=== PATIENT | female | born 1985 | race Caucasian/White ===

== ENCOUNTER 2016-05-17 12:58 | Inpatient (IN) | payer MEDICAID ==
[~2016-05-17] VITALS: Ht 162.6 cm; Wt 91.4 kg
[2016-05-17 13:21] VITALS: Ht 162.6 cm; Wt 91.4 kg
[2016-05-17 13:22] VITALS: BP 124/74; PULSE 87; RESP 18
[2016-05-17] MEDS ORDERED: PRENAT PO (13:24)
[2016-05-17] MEDS ORDERED: FERR325C PO (13:25)
[2016-05-17] MEDS ORDERED: FOL8 PO (13:25)
[2016-05-17] MEDS ORDERED: LACTATED RINGER'S 1,000 ML IV SCH (13:52)
--- NOTE | 2016-05-17 14:45 | RADRPT ---
PROCEDURE: US OB. CLINICAL INDICATION: Size and dates TECHNIQUE: Multiple sonographic images of the pelvis and gravid uterus were obtained. The images were reviewed on a PACS workstation. COMPARISON: No prior studies are available for comparison. FINDINGS: There is a single viable intrauterine gestation. Cardiac activity is present with 132 beats per min tanja. There is a variable presentation. The placenta is anterior fundal. There is no evidence for an abruption or placenta previa. Measurements were made in order to determine age. The results are as follows: BPD =8.6 cm HC =31.6 cm AC =30.3 cm FL =6.1 cm Estimated gestational age of approximately 34 weeks and 0 days based on ultrasound measurements. Clinical age: 35 weeks and 5 days. The estimated date of delivery is 06/28/16, based on ultrasound measurements. The EFW = 2248 g, 7.5%, based on LMP age. RPTAT: AA IMPRESSION: Single viable intrauterine gestation of approximately 34 weeks and 0 days based on ultrasound measu rements. Smaller than clinical age by 1.5 weeks. .Osmel Mccall MD MD Date Time Electronically viewed and signed by .Osmel Mccall MD, MD on 05/17/2016 14:44 .S/
--- NOTE | 2016-05-17 15:18 | RADRPT ---
PROCEDURE: US OB biophysical profile. CLINICAL INDICATION: decreased movements TECHNIQUE: Multiple sonographic images of the pelvis were obtained. The images were reviewed on a PACS workstation. COMPARISON: No prior studies are available for comparison. FINDINGS: There is a single viable intrauterine gestation. Cardiac activity is present with 130 beats per min tanja. There is a breech presentation. The placenta is anterior fundal. There is no evidence of placental abruption. There is a normal amount of amniotic fluid with an DARIAN = 9.5 cm. Biophysical profile: movement 2/2 tone 2/2. breathing 2/2 DARIAN 2/2 Total 11/06 RPTAT: AA . IMPRESSION: Normal biophysical profile. . .Osmel Mccall MD, MD Date Time Electronically viewed and signed by .Osmel Mccall MD, MD on 05/17/2016 15:17 .S/
[2016-05-17] MEDS: LACTATED RINGER'S 1,000 ML IV SCH ×2 (15:52→23:42)
[2016-05-17 16:09] LABS: ALBUMIN 3.4 g/dl (3.3-4.9)
[2016-05-17 16:10] LABS: POTASSIUM 3.9 mmol/L (3.5-5.1)
[2016-05-17 16:12] LABS: ALBUMIN/GLOBULIN RATIO 1.06; BILIRUBIN,INDIRECT 0.1 mg/dl (0-1.1); BILIRUBIN,TOTAL 0.1 mg/dl (0.2-1.3); CREATININE 0.43 mg/dl (0.44-1.00); TOTAL PROTEIN 6.6 g/dl (6.1-8.1)
[2016-05-17 16:13] LABS: CALCIUM 8.8 mg/dl (8.4-10.2)
[2016-05-17] MEDS: GENTAMICIN 120 MG/NS (PMX) 100 ML IVPB SCH ×2 (16:55→22:09)
--- NOTE | 2016-05-17 20:31 | HP ---
DATE OF ADMISSION: 05/17/2016 HISTORY OF PRESENT ILLNESS: Ms. Tete Stephens is a 30-year-old 1, para 0, EDC 06/17/2016 , intrauterine at 35 weeks and 4 days' gestational age, who was sent from [facility] secondary to a urinary tract infection/Pseudomonas putida which was sensitive to genta micin. She was admitted for IV gentamicin q.8 hours for 3 days per pharmacy regimen. The patient d enies any contractions, vaginal bleeding or discharge. Her care took place at [facility] at approximately 34 weeks' gestational age. MEDICAL HISTORY: Anemia. MEDICATIONS: 1. vitamins. 2. Iron. PAST SURGICAL HISTORY: None. OBSTETRIC HISTORY: Primigravid. GYNECOLOGIC HISTORY: Twelve, regular, 3 to 4 days. Denies any sexually transmitted disease. Sexua lly active with 1 partner. SOCIAL HISTORY: Denies any smoking, drugs or alcohol. FAMILY HISTORY: None. PHYSICAL EXAMINATION: HEENT: Within normal. LUNGS: CTA bilateral. CARDIOVASCULAR: S1, S2. Regular rhythm. ABDOMEN: Gravid, nontender. EXTREMITIES: Negative edema. No calf tenderness. PELVIC: Vaginal exam deferred. ASSESSMENT: Urinary tract infection, pseudomonas sensitive to gentamicin. PLAN: Admit for IV gentamicin per pharmacy regimen. Dictated By: ANG BARBOUR/AAMIR Conf#: [id number] DID#: [id number]
[2016-05-18] MEDS: GENTAMICIN 120 MG/NS (PMX) 100 ML IVPB SCH ×3 (06:22→21:49)
--- NOTE | 2016-05-18 08:04 | QN ---
Documentation Comment patient seen and evaluated no complaints vs stable ab gravid nt no cva tenderness extremity no edema no calf tenderness a/ iup at 35 wks ga, uti currently on iv antibiotics p/ continue present management ANG STOVER MD May 18, 2016 08:04
[2016-05-18] MEDS: MULTIVIT/MIN/FOLATE/IRON/PREN TAB PO SCH (09:11)
[2016-05-18] MEDS: FERROUS SULFATE (EC) 325 MG TAB PO SCH (09:11)
[2016-05-18] MEDS: LACTATED RINGER'S 1,000 ML IV SCH ×3 (09:15→22:00)
[2016-05-19] MEDS: GENTAMICIN 120 MG/NS (PMX) 100 ML IVPB SCH ×3 (05:47→22:02)
[2016-05-19] MEDS: LACTATED RINGER'S 1,000 ML IV SCH ×3 (05:48→22:01)
[2016-05-19] MEDS: MULTIVIT/MIN/FOLATE/IRON/PREN TAB PO SCH (08:34)
[2016-05-19] MEDS: FERROUS SULFATE (EC) 325 MG TAB PO SCH (08:34)
--- NOTE | 2016-05-19 17:29 | QN ---
Documentation Comment Laborist for Dr Ramirez Pt is a 30 y.o. G1 with pyelonephritis with Pseudomonas on day 3 of Gentamicin. Pt feels well and is w/o complaints. No flank pain. Afebrile, VSS. No CVAT. P: Continue care. DIRK MARTINEZ MD May 19, 2016 17:29
[2016-05-20] MEDS: GENTAMICIN 120 MG/NS (PMX) 100 ML IVPB SCH (05:35)
[2016-05-20] MEDS: LACTATED RINGER'S 1,000 ML IV SCH (05:36)
[2016-05-20] MEDS: FERROUS SULFATE (EC) 325 MG TAB PO SCH (08:55)
[2016-05-20] MEDS: MULTIVIT/MIN/FOLATE/IRON/PREN TAB PO SCH (08:55)
--- NOTE | 2016-05-20 11:05 | PD.PPDC ---
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
--- NOTE | 2016-05-20 15:12 | DS ---
DATE OF ADMISSION: 05/17/2016 DATE OF DISCHARGE: 05/20/2016 PRIMARY DIAGNOSIS: A 30-year-old 1, para 0, intrauterine at 35 weeks gestational age, urinary tract infection with Pseudomonas putida, undelivered. PROCEDURE: None. CONDITION ON DISCHARGE: Stable. ACTIVITY: As tolerated. DIET: Regular. MEDICATIONS ON DISCHARGE: None. DISCHARGE SUMMARY: Ms. Tete Stephens is a 30-year-old 1, para 0, who was sent from [facility] for IV antibiotics secondary to Pseudomonas putida. She had 3 days' cours e of IV gentamicin per pharmacy regimen, and she currently denies any contractions, vaginal bleeding , CVA tenderness. She will follow up in her normal office visit this for care. Dictated By: ANG BARBOUR/AAMIR Conf#: [id number] DID#: [id number]
== END 2016-05-20 13:15 | disposition home or self-care (01) | DRG 781 ==
LOC: OBT 12:58 → L-D 12:58 → OBT 13:55 → OBG 13:56
PROVIDERS: ADMIT Obstetrics & Gynecology; ATTEND Obstetrics & Gynecology
DX: O23.43 Unspecified infection of urinary tract in pregnancy, third trimester (principal); B96.5 Pseudomonas (aeruginosa) (mallei) (pseudomallei) as the cause of diseases classified elsewhere; Z3A.35 35 weeks gestation of pregnancy
CPT/HCPCS: 76815; 76818; 80053; G0463; J1580; J7120

== ENCOUNTER 2016-05-31 12:24 | Outpatient (CLI) | payer SELFPAY ==
[~2016-05-31] VITALS: Ht 162.6 cm; Wt 93.0 kg
[~2016-05-31 12:24] MED LIST: FERR325C PO; FOL8 PO; PRENAT PO
[2016-05-31 12:43] VITALS: Ht 162.6 cm; Wt 93.0 kg
[2016-05-31 12:44] VITALS: BP 111/62; PULSE 88; RESP 18
[2016-05-31] MEDS ORDERED: FERR325C PO (12:47)
[2016-05-31 13:32] LABS: ADD SCAN DIFF NO
[2016-05-31 13:35] LABS: BASOPHILS % 0.3 % (0.0-2.0); EOSINOPHILS % 0.3 % (0.0-7.0); HEMATOCRIT 31.9 % (37.0-47.0); HEMOGLOBIN 9.9 g/dl (12.0-16.0); LYMPHOCYTES # 1.5 10^3/ul (0.8-2.9); LYMPHOCYTES % 16.3 % (15.0-51.0); MEAN CORPUSCULAR HEMOGLOBIN 26.4 pg (29.0-33.0); MEAN CORPUSCULAR VOLUME 85.1 fl (82.0-101.0); MEAN PLATELET VOLUME 9.5 fl (7.4-10.4); MONOCYTE # 0.7 10^3/ul (0.3-0.9); MONOCYTES % 7.2 % (0.0-11.0); NEUTROPHIL # 6.9 10^3/ul (1.6-7.5); NEUTROPHILS % 75.4 % (39.0-77.0); PLATELET COUNT 401 10^3/UL (140-415); RED BLOOD COUNT 3.75 10^6/ul (4.20-5.40); WHITE BLOOD COUNT 9.2 10^3/ul (4.8-10.8)
[2016-05-31 13:35] LABS: ADD UMIC YES; URINE BILIRUBIN (Dip) NEGATIVE (NEGATIVE); URINE BLOOD (Dip) NEGATIVE (NEGATIVE); URINE COLOR LT. YELLOW (YELLOW); URINE GLUCOSE (Dip) NEGATIVE (NEGATIVE); URINE KETONES (Dip) NEGATIVE (NEGATIVE); URINE LEUKOCYTE ESTERASE (Dip) 1+ (NEGATIVE); URINE NITRITE (Dip) NEGATIVE (NEGATIVE); URINE TOTAL PROTEIN (Dip) NEGATIVE (NEGATIVE); URINE UROBILINOGEN (Dip) 0.2 E.U./dL (0.1-1.0)
[2016-05-31 13:44] LABS: BACTERIA,URINE MODERATE; URINE RBCS NONE SEEN /HPF (0)
[2016-05-31 13:58] LABS: ALBUMIN 3.5 g/dl (3.3-4.9)
[2016-05-31 13:59] LABS: POTASSIUM 4.4 mmol/L (3.5-5.1)
[2016-05-31 14:01] LABS: CREATININE 0.5 mg/dl (0.44-1.00)
[2016-05-31 14:02] LABS: ALBUMIN/GLOBULIN RATIO 0.87; TOTAL PROTEIN 7.5 g/dl (6.1-8.1); URIC ACID 3.1 mg/dl (3.1-7.9)
[2016-05-31 14:03] LABS: CALCIUM 9.1 mg/dl (8.4-10.2)
--- NOTE | 2016-05-31 14:36 | RADRPT ---
PROCEDURE: US OB biophysical profile. CLINICAL INDICATION: decreased movements, HBPS TECHNIQUE: Multiple sonographic images of the pelvis were obtained. The images were reviewed on a PACS workstation. COMPARISON: 05/17/2016 FINDINGS: There is a single viable intrauterine gestation. Cardiac activity is present with 137 beats per min tanja. There is a vertex presentation. The placenta is bilobed. There is no evidence of placental abruption. There is a normal amount of amniotic fluid with an DARIAN = 16 cm. Biophysical profile: movement 2/2 tone 2/2. breathing 2/2 DARIAN 2/2 Total 11/06 RPTAT: AA . IMPRESSION: Normal biophysical profile. . .Osmel Mccall MD, MD Date Time Electronically viewed and signed by .Osmel Mccall MD, MD on 05/31/2016 14:36 .S/
--- NOTE | 2016-05-31 14:41 | RADRPT ---
PROCEDURE: US OB. CLINICAL INDICATION: Size and dates , late care TECHNIQUE: Multiple sonographic images of the pelvis and gravid uterus were obtained. The images were reviewed on a PACS workstation. COMPARISON: 05/17/2016 FINDINGS: There is a single viable intrauterine gestation. Cardiac activity is present with 137 beats per min elim ira. There is a vertex presentation. The placenta is bilobed anterior-posterior. There is no evidence for an abruption or placenta previa . There is a normal amount of amniotic fluid with an DARIAN = 16 cm. Measurements were made in order to determine age. The results are as follows: BPD =9.0 cm HC =33.4 cm AC =33.7 cm FL =7.4 cm Estimated gestational age of approximately 37 weeks and 4 days based on ultrasound measurements. Clinical age: 37 weeks and 4 days. The estimated date of delivery is 06/17/16, based on ultrasound measurements. The EFW = 3250 g, 60.1%, based on LMP age. RPTAT: AA IMPRESSION: Single viable intrauterine gestation of approximately 37 weeks and 4 days based on ultrasound measu rements. .Osmel Mccall MD, Date Time Electronically viewed and signed by .Osmel Mccall MD, on 05/31/2016 14:41 .S/
--- NOTE | 2016-05-31 16:12 | CONS ---
Date/Time of Note Date/Time of Note DATE: 05/31/16 TIME: 16:03 Consultation Date/Type/Reason Admit Date/Time May 31, 2016 OB triage consult This patient is a 30 years old primigravida with estimated date of confinement of June 17, 2016 this makes her about 37 weeks now She had a late entry into the obstetrical care and she was sent to the OB triage area for elevated of blood pressure to rule out PIH or any other abnormal condition She is a well-developed well-nourished lady closed with her her ear nose throat appear to be normal Neck is normal Abdomen measures about 35 cm baby appears to be vertex at this time she has very scattered contractions that is infrequent contraction heart tone appears to be normal no deceleration she has fairly good variability occasional axillary Her vital signs are normal. Her blood pressure 111/62 pulse rate 88 and temperature 97.9 on the lab work we have done. Her electrolytes are within normal limits, her urine urinalysis shows a 1+ leukocyte esterase with 5-10 WBCs. The rest of the urinalysis was reported normal. Her hemoglobin is 9.9 hematocrit 31.9 RBC 3.7. Her white count platelet count and differential were all within normal. Ultrasound study there was a single viable intrauterine gestation with cardiac activity of 137 bpm her DARIAN was 16 cm and estimated gestational age of approximately 37 weeks and 4 days.By this ultrasound the estimated weight was 2-3250 g which is 60.1% of based on LMP . Due date these positive findings patient will be sent home to continue her care,. She was mentioned about her anemia she says she is taking iron 3 times a day and we recommended to continue this till delivery and after that. . She will be seeing her clinic on her next appointment which is tomorrow Laboratory Tests Test 05/31/16 12:26 05/31/16 12:57 Urine Bacteria MODERATE Urine Bilirubin NEGATIVE Urine Clarity CLEAR Urine Color LT. YELLOW Urine Epithelial Cells MODERATE Urine Glucose NEGATIVE% Urine Hemoglobin NEGATIVE Urine Ketones NEGATIVE Urine Leukocyte Esterase 1+ Urine Microscopic RBC NONE SEEN/HPF Urine Microscopic WBC 5-10/HPF Urine Nitrite NEGATIVE Urine Specific [place] 1.015 Urine Total Protein NEGATIVE Urine Urobilinogen 0.2 E.U./dL Urine pH 7.0 Alanine Aminotransferase (ALT/SGPT) 29IU/L Albumin 3.5g/dl Albumin/Globulin Ratio 0.87 Alkaline Phosphatase 138IU/L Anion Gap 17 Aspartate Amino Transf (AST/SGOT) 17IU/L Basophils # 0.010^3/ul Basophils % 0.3% Blood Urea Nitrogen 6mg/dl Calcium Level 9.1mg/dl Carbon Dioxide Level 21mmol/L Chloride Level 105mmol/L Creatinine 0.50mg/dl Direct Bilirubin 0.00mg/dl Eosinophils # 0.010^3/ul Eosinophils % 0.3% Globulin 4.00g/dl Glucose Level 79mg/dl Hematocrit 31.9% Hemoglobin 9.9g/dl Indirect Bilirubin 0.0mg/dl Lymphocytes # 1.510^3/ul Lymphocytes % 16.3% Mean Corpuscular Hemoglobin 26.4pg Mean Corpuscular Hemoglobin Concent 31.0g/dl Mean Corpuscular Volume 85.1fl Mean Platelet Volume 9.5fl Monocytes # 0.710^3/ul Monocytes % 7.2% Neutrophils # 6.910^3/ul Neutrophils % 75.4% Nucleated Red Blood Cells # 0.010^3/ul Nucleated Red Blood Cells % 0.0/100WBC Platelet Count 60675^3/UL Potassium Level 4.4mmol/L Red Blood Count 3.7510^6/ul Red Cell Distribution Width 16.0% Sodium Level 139mmol/L Total Bilirubin 0.0mg/dl Total Protein 7.5g/dl Uric Acid 3.1mg/dl White Blood Count 9.210^3/ul on examination Initial Consult Date Type of Consultation: OB triage Reason for Consultation Rule out PIH 24 HR Interval Summary Constitutional: No chills, No diaphoresis, No disoriented, No febrile, No improved, No no complaints, No other, No poor po, No requiring IVF, No requiring O2 Detailed Summary Eyes: No discharge, No no complaints, No other, No pain, No redness, No visual change ENT: No bleeding, No congestion, No discharge, No dysphagia, No no complaints, No other, No pain, No sore throat Respiratory: No cough, No no complaints, No other, No pain, No pleuritic pain, No shortness of breath, No sputum, No wheezing Cardiovascular: No chest pain, No edema, No lightheadedness, No no complaints, No orthopenea, No other, No palpitations, No paroxysmal nocturnal dyspnea Gastrointestinal: No blood, No constipation, No decreased appetite, No diarrhea , No flatus, No nausea, No no complaints, No other, No pain, No passing stool, No vomiting Genitourinary: other (No complaint of dysuria or frequency), No bleeding, No discharge, No dysuria, No flank pain, No hematuria, No no complaints Musculoskeletal: No back pain, No bone/joint pain, No neck pain, No no complaints, No other, No restricted range of motion, No swelling Skin: No bruising, No erythema, No laceration, No no complaints, No other, No pruritis, No rash, No skin lesions Neurologic: No confusion, No dizziness, No focal-weakness, No headache, No no complaints, No other, No seizure, No syncope Endocrine: No dry skin, No no complaints, No other, No polydypsia, No polyuria , No temp intolerance Exam/Review of Systems Vital Signs Vitals Vital Signs Date Time Temp Pulse Resp B/P Pulse Ox O2 Delivery O2 Flow Rate FiO2 05/31/16 12:44 97.9 88 18 111/62 Room Air Results Result Diagram: 05/31/16 1257 05/31/16 1257 Results 24 hrs Laboratory Tests Test 05/31/16 12:26 05/31/16 12:57 Urine Bacteria MODERATE Urine Bilirubin NEGATIVE Urine Clarity CLEAR Urine Color LT. YELLOW Urine Epithelial Cells MODERATE Urine Glucose NEGATIVE Urine Hemoglobin NEGATIVE Urine Ketones NEGATIVE Urine Leukocyte Esterase 1+ H Urine Microscopic RBC NONE SEEN Urine Microscopic WBC 5-10 Urine Nitrite NEGATIVE Urine Specific [place] 1.015 Urine Total Protein NEGATIVE Urine Urobilinogen 0.2 E.U./dL Urine pH 7.0 Alanine Aminotransferase (ALT/SGPT) 29 Albumin 3.5 Albumin/Globulin Ratio 0.87 Alkaline Phosphatase 138 H Anion Gap 17 H Aspartate Amino Transf (AST/SGOT) 17 Basophils # 0.0 Basophils % 0.3 Blood Urea Nitrogen 6 L Calcium Level 9.1 Carbon Dioxide Level 21 Chloride Level 105 Creatinine 0.50 Direct Bilirubin 0.00 Eosinophils # 0.0 Eosinophils % 0.3 Globulin 4.00 H Glucose Level 79 Hematocrit 31.9 L Hemoglobin 9.9 L Indirect Bilirubin 0.0 Lymphocytes # 1.5 Lymphocytes % 16.3 Mean Corpuscular Hemoglobin 26.4 L Mean Corpuscular Hemoglobin Concent 31.0 L Mean Corpuscular Volume 85.1 Mean Platelet Volume 9.5 Monocytes # 0.7 Monocytes % 7.2 Neutrophils # 6.9 Neutrophils % 75.4 Nucleated Red Blood Cells # 0.0 Nucleated Red Blood Cells % 0.0 Platelet Count 401 Potassium Level 4.4 Red Blood Count 3.75 L Red Cell Distribution Width 16.0 H Sodium Level 139 Total Bilirubin 0.0 L Total Protein 7.5 Uric Acid 3.1 White Blood Count 9.2 RONALD ROJAS MD May 31, 2016 16:12
== END 2016-05-31 16:10 | disposition home or self-care (01) ==
LOC: L-D 12:24 → OBT 12:24
PROVIDERS: ATTEND Obstetrics & Gynecology
DX: O26.893 Other specified pregnancy related conditions, third trimester (principal); R03.0 Elevated blood-pressure reading, without diagnosis of hypertension; O99.013 Anemia complicating pregnancy, third trimester; D64.9 Anemia, unspecified; O36.8130 Decreased fetal movements, third trimester, not applicable or unspecified; O09.33 Supervision of pregnancy with insufficient antenatal care, third trimester; Z3A.37 37 weeks gestation of pregnancy
CPT/HCPCS: 76815; 76818; 80053; 81001; 84560; 85025; G0463; 81003

== ENCOUNTER 2016-06-14 12:39 | Inpatient (IN) | payer MEDICAID ==
[~2016-06-14] VITALS: Ht 160 cm; Wt 95.3 kg
[2016-06-14 13:06] VITALS: BP 123/77; PULSE 82; RESP 18; Ht 160 cm; Wt 95.3 kg
[2016-06-14 13:27] LABS: ADD SCAN DIFF NO
[2016-06-14 13:33] LABS: BASOPHILS % 0.2 % (0.0-2.0); EOSINOPHILS # 0.2 10^3/ul (0.0-0.5); EOSINOPHILS % 1.9 % (0.0-7.0); HEMATOCRIT 32.4 % (37.0-47.0); HEMOGLOBIN 10.3 g/dl (12.0-16.0); LYMPHOCYTES # 1.2 10^3/ul (0.8-2.9); LYMPHOCYTES % 14.1 % (15.0-51.0); MEAN CORPUSCULAR HEMOGLOBIN 27.2 pg (29.0-33.0); MEAN CORPUSCULAR HGB CONC 31.8 g/dl (32.0-37.0); MEAN CORPUSCULAR VOLUME 85.7 fl (82.0-101.0); MEAN PLATELET VOLUME 9.3 fl (7.4-10.4); MONOCYTE # 0.5 10^3/ul (0.3-0.9); MONOCYTES % 6.3 % (0.0-11.0); NEUTROPHIL # 6.3 10^3/ul (1.6-7.5); PLATELET COUNT 311 10^3/UL (140-415); RED BLOOD COUNT 3.78 10^6/ul (4.20-5.40); RED CELL DISTRIBUTION WIDTH 17.8 % (11.5-14.5); WHITE BLOOD COUNT 8.2 10^3/ul (4.8-10.8)
[2016-06-14 13:39] LABS: ALBUMIN 3.2 g/dl (3.3-4.9)
[2016-06-14 13:40] LABS: INR 1.03; POTASSIUM 3.7 mmol/L (3.5-5.1); PROTIME 13.5 Sec (12.2-14.2); PT RATIO 1.1
[2016-06-14 13:41] LABS: PARTIAL THROMBOPLASTIN TIME 28.4 Sec (25.0-35.0)
[2016-06-14 13:42] LABS: ALBUMIN/GLOBULIN RATIO 0.94; CREATININE 0.5 mg/dl (0.44-1.00); TOTAL PROTEIN 6.6 g/dl (6.1-8.1)
[2016-06-14 13:43] LABS: CALCIUM 8.6 mg/dl (8.4-10.2); URIC ACID 3.6 mg/dl (3.1-7.9)
--- NOTE | 2016-06-14 14:11 | RADRPT ---
PROCEDURE: Biophysical profile CLINICAL INDICATION: distress TECHNIQUE: Color and ney-scale ultrasound images of an intrauterine gestation were obtained. COMPARISON: May 31, 2016 FINDINGS: A single live intrauterine gestation is identified in cephalic position with an estimated hear t rate of 159 beats per minute. The placenta is located anteriorly and has a grade of II. The cerv ix. No evidence of abruption identified. DARIAN is 14.2 cm. movement 2/2. tone 2/2. breathing movement 2/2. Qualitative AFV 2/2 Total biophysical profile 11/06 IMPRESSION: 11/06 biophysical profile. RPTAT: AA .Timothy Guerra MD, Date Time Electronically viewed and signed by .Timothy Guerra MD, on 06/14/2016 14:11 .P/
--- NOTE | 2016-06-14 14:15 | RADRPT ---
PROCEDURE: US OB. CLINICAL INDICATION: in labor. Estimated weight. TECHNIQUE: Multiple sonographic images of the pelvis were obtained. The images were reviewed on a PACS workstation. COMPARISON: May 31, 2016 FINDINGS: There is a single live intrauterine gestation. Cardiac activity is present with 159 beats per minut e. There is a cephalic presentation. Measurements were made in order to determine age. The results are as follows: BPD =9.5 cm = 39 weeks 0 days HC =34.0 cm = 39 weeks 1 day AC =34.4 cm = 38 weeks 2 days FL =7.4 cm = 38 weeks to 0 days Estimated gestational age of approximately 38 weeks 4 days The estimated date of delivery is June 24, 2016. The EFW = 3483 g . The placenta is anteriorly and has a grade of II. There is no evidence for an abruption. IMPRESSION: Single live intrauterine gestation of approximately 38 weeks 4 days. The estimated date of delivery is June 24, 2016. The estimated date of delivery based upon the earliest available ultrasound is June 28, 2016. Estimated weight of 3483 g. RPTAT: AA .Timothy Guerra MD, MD Date Time Electronically viewed and signed by .Timothy Guerra MD, MD on 06/14/2016 14:15 .P/
[2016-06-14 14:43] LABS: URINE BLOOD (Dip) POC 2+ (NEGATIVE)
[2016-06-14] MEDS ORDERED: AMPICILLIN 2 GM/NS (PMX) 100 ML ONE (14:57)
[2016-06-14] MEDS: LACTATED RINGER'S 1,000 ML IV SCH (15:30)
--- NOTE | 2016-06-14 15:39 | TRIAGE ---
OB Triage Datetime Report Generated by CPN: 06/14/2016 15:38 Datetime: 06/14/2016 15:16 Vaginal Exam Dilatation (cms): 2.0 Effacement (%): 50 Station: -2 Exam By: KARELY RN Vaginal Bleeding: None Cervix, Consistency: Moderate Cervix, Position: Midposition Presentation 'A': Unable to Assess Lie 'A': Unable to Assess Datetime: 06/14/2016 14:31 Labor Evaluation Frequency: 0 Monitor Mode: External Duration (sec)2399: 0 Resting Tone [place]: Relaxed Heart Rate FHR Baseline Rate: 150 Monitor Mode: External US FHR Baseline Changes: No Baseline Change Variability: Moderate 6-25 bpm Accelerations: 15X15 Decelerations: None Category: Category I Datetime: 06/14/2016 14:00 Stage of : OB Triage Labor Evaluation Frequency: 0 Monitor Mode: External Duration (sec)2399: 0 Resting Tone [place]: Relaxed Heart Rate FHR Baseline Rate: 150 Monitor Mode: External US FHR Baseline Changes: No Baseline Change Variability: Moderate 6-25 bpm Accelerations: 15X15 Decelerations: None Category: Category I Datetime: 06/14/2016 13:30 Stage of : OB Triage Labor Evaluation Frequency: 0 Monitor Mode: External Duration (sec)2399: 0 Resting Tone [place]: Relaxed Heart Rate FHR Baseline Rate: 120 Monitor Mode: External US FHR Baseline Changes: No Baseline Change Variability: Moderate 6-25 bpm Accelerations: 15X15 Decelerations: None Category: Category I Datetime: 06/14/2016 13:10 Labor Evaluation Frequency: none Pattern: Normal: <= 5 Contractions in 10 Minutes Heart Rate FHR Baseline Rate: 165 Monitor Mode: External US FHR Baseline Changes: No Baseline Change Variability: Moderate 6-25 bpm Accelerations: 15X15 Decelerations: None Category: Category I Datetime: 06/14/2016 13:00 Stage of : OB Triage Maternal Assessment Level of Consciousness: Fully Conscious DTR's/Clonus: DTRs 2+; No Clonus Headache: Denies Blurred Vision: No Respiratory Effort: Unlabored Breath Sounds, Left: Clear and Equal Breath Sounds, Right: Clear and Equal Nausea/Vomiting: Denies RUQ Epigastric Pain: Denies Facial Edema: None Labor Evaluation Frequency: 0 Monitor Mode: External Duration (sec)2399: 0 Resting Tone [place]: Relaxed Heart Rate FHR Baseline Rate: 155 Monitor Mode: External US FHR Baseline Changes: No Baseline Change Variability: Moderate 6-25 bpm Accelerations: 15X15 Decelerations: None Category: Category I Pain Assessment Pain Scale: 0 Pain Presence: None/Denies Pain Type: N/A Pain Goal: 0 Pain Relief Measures: Comfort Measures Membrane Status: Intact Datetime: 06/14/2016 12:58 Time of Arrival: 06/14/2016 12:37 EGA: 39.5 Arrived By: Wheelchair Arrived From: Office Chief Complaint: R/O PIH Movement: Present Contractions: Denies/Absent Rupture of Membranes: Denies Vaginal Bleeding: None Vaginal Discharge: Denies Recent Sexual Intercouse: Denies Abdominal Trauma: Not Applicable Patient Complaints: None Time Provider Notified: 06/14/2016 12:59 Provider Notified: ESHAGHIAN Datetime: 05/31/2016 15:48 Stage of : OB Triage Labor Evaluation Frequency: 0 Monitor Mode: External Resting Tone [place]: Relaxed Heart Rate FHR Baseline Rate: 130 Monitor Mode: External US Variability: Moderate 6-25 bpm Accelerations: 15X15 Decelerations: None Category: Category I Datetime: 05/31/2016 13:28 Stage of : OB Triage Labor Evaluation Frequency: 0 Monitor Mode: External Resting Tone [place]: Relaxed Heart Rate FHR Baseline Rate: 135 Monitor Mode: External US Variability: Moderate 6-25 bpm Accelerations: Prolonged Decelerations: None Category: Category I Pain Presence: None/Denies Pain Type: N/A Datetime: 05/31/2016 12:37 Assessment Type: Triage Maternal Assessment Level of Consciousness: Fully Conscious DTR's/Clonus: DTRs 2+; No Clonus Headache: Denies Blurred Vision: No Respiratory Effort: Unlabored Breath Sounds, Left: Clear and Equal Breath Sounds, Right: Clear and Equal Nausea/Vomiting: Denies RUQ Epigastric Pain: Denies Lower Extremities Edema: None Degree: None Upper Extremities Edema: None Degree: None Facial Edema: None Fall Risk Assessment History of Falling: (0) No Secondary Diagnosis: (15) Yes (Annotations: LATE PNC () Ambulatory Aid: (0) Bedrest/Nurse Assist IV Therapy: (0) No Gait: (0) Normal/Bedrest/Immobile Mental Status: (0) Oriented to Own Ability Fall Score: 15 Fall Risk Score Definition: No Risk: No action required Datetime: 05/31/2016 12:30 Stage of : OB Triage Monitor Mode: External Monitor Mode: External US Datetime: 05/31/2016 12:28 Time of Arrival: 05/31/2016 12:20 EGA: 37.5 Arrived By: Ambulatory Arrived From: Office Chief Complaint: From clinic with orders for hbps _ pih labs Movement: Present Contractions: Denies/Absent Rupture of Membranes: Denies Vaginal Bleeding: None Vaginal Discharge: Denies Recent Sexual Intercouse: Denies Abdominal Trauma: Not Applicable Patient Complaints: Other Additional Patient Complaints: Late PNC (05/10) Provider Notified: ESHAMATIIAN Initial Plan: VS, BP STUDIES, EFM, CBC, CMP, URIC ACID, UA, BPP, Datetime: 05/20/2016 10:31 Heart Rate FHR Baseline Rate: 130 Monitor Mode: External US FHR Baseline Changes: No Baseline Change Variability: Moderate 6-25 bpm Accelerations: 15X15 Decelerations: None Category: Category I Datetime: 05/20/2016 08:55 Assessment Type: Ongoing Assessment Maternal Assessment Level of Consciousness: Fully Conscious DTR's/Clonus: DTRs 2+; No Clonus Headache: Denies Blurred Vision: No Respiratory Effort: Unlabored; Regular Rhythm; Equal Expansion Breath Sounds, Left: Clear and Equal Breath Sounds, Right: Clear and Equal Nausea/Vomiting: Denies RUQ Epigastric Pain: Denies Lower Extremities Edema: None Upper Extremities Edema: None Facial Edema: None Fall Risk Assessment History of Falling: (0) No Secondary Diagnosis: (0) No Ambulatory Aid: (0) Bedrest/Nurse Assist IV Therapy: (20) Yes Gait: (0) Normal/Bedrest/Immobile Mental Status: (0) Oriented to Own Ability Fall Score: 20 Fall Risk Score Definition: No Risk: No action required Pain Presence: None/Denies Pain Type: N/A Datetime: 05/20/2016 05:40 Stage of : Antepartum Temperature Route: Oral Pain Assessment Pain Scale: 0 Pain Presence: None/Denies Pain Type: N/A Pain Goal: 2 Datetime: 05/20/2016 03:15 Stage of : Antepartum Datetime: 05/19/2016 23:03 Stage of : Antepartum Temperature Route: Oral Pain Assessment Pain Scale: 0 Pain Presence: None/Denies Pain Type: N/A Pain Goal: 2 Datetime: 05/19/2016 20:22 Labor Evaluation Frequency: None Monitor Mode: External Resting Tone [place]: Relaxed Contraction Comments: Pt denies feeling any UCs Heart Rate FHR Baseline Rate: 145 Monitor Mode: External US Variability: Moderate 6-25 bpm Accelerations: 15X15 Decelerations: None Category: Category I Datetime: 05/19/2016 19:37 Stage of : Antepartum Assessment Type: Ongoing Assessment Maternal Assessment Level of Consciousness: Fully Conscious DTR's/Clonus: DTRs 2+; No Clonus Headache: Denies Blurred Vision: No Respiratory Effort: Unlabored; Regular Rhythm; Equal Expansion Breath Sounds, Left: Clear and Equal Breath Sounds, Right: Clear and Equal Nausea/Vomiting: Denies RUQ Epigastric Pain: Denies Lower Extremities Edema: None Upper Extremities Edema: None Facial Edema: None Temperature Route: Oral Fall Risk Assessment History of Falling: (0) No Secondary Diagnosis: (0) No Ambulatory Aid: (0) Bedrest/Nurse Assist IV Therapy: (20) Yes (Annotations: LR at 125 ml/hr) Gait: (0) Normal/Bedrest/Immobile Mental Status: (0) Oriented to Own Ability Fall Score: 20 Fall Risk Score Definition: No Risk: No action required Labor Evaluation Frequency: None Monitor Mode: Palpation Resting Tone [place]: Relaxed Pain Assessment Pain Scale: 0 Pain Presence: None/Denies Pain Type: N/A Pain Goal: 2 Datetime: 05/19/2016 09:53 Heart Rate FHR Baseline Rate: 130 Monitor Mode: External US FHR Baseline Changes: No Baseline Change Variability: Moderate 6-25 bpm Accelerations: 15X15 Decelerations: None Category: Category I Comments: NST Datetime: 05/19/2016 08:35 Assessment Type: Ongoing Assessment Maternal Assessment Level of Consciousness: Fully Conscious DTR's/Clonus: DTRs 2+; No Clonus Headache: Denies Headache: Denies Blurred Vision: No Blurred Vision: No Respiratory Effort: Unlabored; Regular Rhythm; Equal Expansion Breath Sounds, Left: Clear and Equal Breath Sounds, Right: Clear and Equal Nausea/Vomiting: Denies RUQ Epigastric Pain: Denies RUQ Epigastric Pain: Denies Lower Extremities Edema: None Degree: None Upper Extremities Edema: None Degree: None Facial Edema: None Facial Edema: None Fall Risk Assessment History of Falling: (0) No Secondary Diagnosis: (0) No Ambulatory Aid: (0) Bedrest/Nurse Assist Gait: (0) Normal/Bedrest/Immobile Mental Status: (0) Oriented to Own Ability Datetime: 05/19/2016 05:47 Stage of : Antepartum Pain Presence: None/Denies Datetime: 05/18/2016 20:00 Labor Evaluation Frequency: 0 Monitor Mode: External Resting Tone [place]: Relaxed Heart Rate FHR Baseline Rate: 135 Monitor Mode: External US Variability: Moderate 6-25 bpm Accelerations: 15X15 Decelerations: None Datetime: 05/18/2016 19:48 Stage of : Antepartum Assessment Type: Ongoing Assessment Maternal Assessment Level of Consciousness: Fully Conscious DTR's/Clonus: DTRs 2+; No Clonus Headache: Denies Blurred Vision: No Respiratory Effort: Unlabored; Regular Rhythm; Equal Expansion Breath Sounds, Left: Clear and Equal Breath Sounds, Right: Clear and Equal Nausea/Vomiting: Denies RUQ Epigastric Pain: Denies Lower Extremities Edema: None Degree: None Upper Extremities Edema: None Degree: None Facial Edema: None Temperature Route: Oral Fall Risk Assessment History of Falling: (0) No Secondary Diagnosis: (0) No Ambulatory Aid: (0) Bedrest/Nurse Assist IV Therapy: (0) No Gait: (0) Normal/Bedrest/Immobile Mental Status: (0) Oriented to Own Ability Fall Score: 0 Fall Risk Score Definition: No Risk: No action required Datetime: 05/18/2016 19:23 Monitor Mode: External US Comments: placed nst started Datetime: 05/18/2016 16:05 Stage of : Antepartum Temperature Route: Oral Pain Assessment Pain Scale: 0 Pain Presence: None/Denies Pain Type: N/A Datetime: 05/18/2016 11:34 Stage of : Antepartum Temperature Route: Oral Pain Assessment Pain Scale: 0 Pain Presence: None/Denies Pain Type: N/A Datetime: 05/18/2016 10:33 Labor Evaluation Frequency: none Monitor Mode: External Resting Tone [place]: Relaxed Heart Rate FHR Baseline Rate: 125 Monitor Mode: External US FHR Baseline Changes: No Baseline Change Variability: Moderate 6-25 bpm Accelerations: 15X15 Decelerations: None Category: Category I Datetime: 05/18/2016 10:32 Comments: NST COMPLETED Datetime: 05/18/2016 10:08 Comments: NST started Datetime: 05/18/2016 07:40 Stage of : Antepartum Assessment Type: Ongoing Assessment Maternal Assessment Level of Consciousness: Fully Conscious DTR's/Clonus: DTRs 2+; No Clonus Headache: Denies Blurred Vision: No Respiratory Effort: Unlabored; Regular Rhythm; Equal Expansion Breath Sounds, Left: Clear and Equal Breath Sounds, Right: Clear and Equal Nausea/Vomiting: Denies RUQ Epigastric Pain: Denies Lower Extremities Edema: None Degree: None Upper Extremities Edema: None Degree: None Facial Edema: None Temperature Route: Oral Fall Risk Assessment History of Falling: (0) No Secondary Diagnosis: (0) No Ambulatory Aid: (0) Bedrest/Nurse Assist IV Therapy: (20) Yes Gait: (0) Normal/Bedrest/Immobile Mental Status: (0) Oriented to Own Ability Fall Score: 20 Fall Risk Score Definition: No Risk: No action required Pain Assessment Pain Scale: 0 Pain Presence: None/Denies Pain Type: N/A Datetime: 05/18/2016 06:21 Stage of : Antepartum Maternal Assessment Level of Consciousness: Fully Conscious Headache: Denies Blurred Vision: No Pain Presence: None/Denies Datetime: 05/17/2016 23:44 Maternal Assessment Level of Consciousness: Fully Conscious Headache: Denies Pain Presence: None/Denies Datetime: 05/17/2016 21:43 Labor Evaluation Frequency: 0 Monitor Mode: External Duration (sec)2399: denies Resting Tone [place]: Relaxed Heart Rate FHR Baseline Rate: 150 Monitor Mode: External US Variability: Moderate 6-25 bpm Accelerations: 10X10 Decelerations: None Category: Category I Comments: pt off monitor as ordered by dr cao. to do nst q shift. Pain Presence: None/Denies Pain Type: N/A Datetime: 05/17/2016 21:00 Labor Evaluation Frequency: 0 Monitor Mode: External Duration (sec)2399: denies Resting Tone [place]: Relaxed Heart Rate FHR Baseline Rate: 145 Monitor Mode: External US Variability: Moderate 6-25 bpm Accelerations: 10X10 Decelerations: None Category: Category I Comments: very difficult to trace fetus due to maternal movements. Datetime: 05/17/2016 20:00 Labor Evaluation Frequency: 0 Monitor Mode: External Duration (sec)2399: denies Resting Tone [place]: Relaxed Heart Rate FHR Baseline Rate: 140 Monitor Mode: External US Variability: Moderate 6-25 bpm Accelerations: 10X10 Decelerations: None Category: Category I Pain Presence: None/Denies Pain Type: N/A Datetime: 05/17/2016 19:22 Stage of : Antepartum Assessment Type: Ongoing Assessment Maternal Assessment Level of Consciousness: Fully Conscious DTR's/Clonus: DTRs 2+; No Clonus Headache: Denies Blurred Vision: No Respiratory Effort: Unlabored; Regular Rhythm; Equal Expansion Breath Sounds, Left: Clear and Equal Breath Sounds, Right: Clear and Equal Nausea/Vomiting: Denies RUQ Epigastric Pain: Denies Lower Extremities Edema: None Degree: None Upper Extremities Edema: None Degree: None Facial Edema: None Temperature Route: Oral Fall Risk Assessment History of Falling: (0) No Secondary Diagnosis: (0) No Ambulatory Aid: (0) Bedrest/Nurse Assist IV Therapy: (0) No Gait: (0) Normal/Bedrest/Immobile Mental Status: (0) Oriented to Own Ability Fall Score: 0 Fall Risk Score Definition: No Risk: No action required Monitor Mode: External US Pain Presence: None/Denies Datetime: 05/17/2016 19:00 Labor Evaluation Frequency: 0 Monitor Mode: External Resting Tone [place]: Relaxed Heart Rate FHR Baseline Rate: 140 Monitor Mode: External US FHR Baseline Changes: No Baseline Change Variability: Moderate 6-25 bpm Accelerations: 10X10 Decelerations: None Category: Category I Pain Assessment Pain Scale: 0 Pain Presence: None/Denies Pain Type: N/A Datetime: 05/17/2016 18:00 Labor Evaluation Frequency: 0 Monitor Mode: External Resting Tone [place]: Relaxed Heart Rate FHR Baseline Rate: 130 Monitor Mode: External US FHR Baseline Changes: No Baseline Change Variability: Moderate 6-25 bpm Accelerations: 15X15 Decelerations: None Pain Assessment Pain Scale: 0 Pain Presence: None/Denies Pain Type: N/A Datetime: 05/17/2016 17:00 Labor Evaluation Frequency: 0 Monitor Mode: External Resting Tone [place]: Relaxed Heart Rate FHR Baseline Rate: 130 Monitor Mode: External US FHR Baseline Changes: No Baseline Change Variability: Moderate 6-25 bpm Accelerations: 15X15 Decelerations: None Pain Assessment Pain Scale: 0 Pain Presence: None/Denies Pain Type: N/A Datetime: 05/17/2016 16:00 Maternal Assessment Level of Consciousness: Fully Conscious DTR's/Clonus: DTRs 2+ Headache: Denies Breath Sounds, Left: Clear and Equal Breath Sounds, Right: Clear and Equal Nausea/Vomiting: Denies RUQ Epigastric Pain: Denies Labor Evaluation Frequency: 0 Monitor Mode: External Resting Tone [place]: Relaxed Heart Rate FHR Baseline Rate: 130 Monitor Mode: External US FHR Baseline Changes: No Baseline Change Variability: Moderate 6-25 bpm Accelerations: 15X15 Decelerations: None Pain Assessment Pain Scale: 0 Pain Presence: None/Denies Pain Type: N/A Membrane Status: Intact Datetime: 05/17/2016 15:30 Maternal Assessment Level of Consciousness: Fully Conscious DTR's/Clonus: DTRs 2+ Headache: Denies Blurred Vision: Yes Respiratory Effort: Unlabored Breath Sounds, Left: Clear and Equal Breath Sounds, Right: Clear and Equal Nausea/Vomiting: Denies RUQ Epigastric Pain: Denies Facial Edema: None Monitor Mode: External Monitor Mode: External US Pain Assessment Pain Scale: 0 Pain Presence: None/Denies Pain Type: N/A Membrane Status: Intact Datetime: 05/17/2016 14:45 Stage of : OB Triage Datetime: 05/17/2016 14:17 Labor Evaluation Frequency: 0 Monitor Mode: External Resting Tone [place]: Relaxed Heart Rate FHR Baseline Rate: 135 Monitor Mode: External US Variability: Moderate 6-25 bpm Accelerations: 15X15 Decelerations: None Category: Category I Datetime: 05/17/2016 13:15 Time of Arrival: 05/17/2016 12:45 EGA: 35.5 Arrived By: Ambulatory Arrived From: Office Chief Complaint: Sent from clinic rt UTI, nedds iv abx. Movement: Present Contractions: Denies/Absent Rupture of Membranes: Denies Vaginal Bleeding: None Vaginal Discharge: Denies Recent Sexual Intercouse: Denies Abdominal Trauma: Not Applicable Patient Complaints: None Additional Patient Complaints: LATE PNC Provider Notified: CK Initial Plan: VS, EFM, BPP, EFW Datetime: 05/17/2016 13:13 Assessment Type: Triage Maternal Assessment Level of Consciousness: Fully Conscious DTR's/Clonus: DTRs 2+; No Clonus Headache: Denies Blurred Vision: No Respiratory Effort: Unlabored Breath Sounds, Left: Clear and Equal Breath Sounds, Right: Clear and Equal Nausea/Vomiting: Denies RUQ Epigastric Pain: Denies Lower Extremities Edema: None Degree: None Degree: None Facial Edema: None Fall Risk Assessment History of Falling: (0) No Secondary Diagnosis: (15) Yes (Annotations: UTI ) Ambulatory Aid: (0) Bedrest/Nurse Assist IV Therapy: (0) No Gait: (0) Normal/Bedrest/Immobile Mental Status: (0) Oriented to Own Ability Fall Score: 15 Fall Risk Score Definition: No Risk: No action required Datetime: 05/17/2016 13:10 Stage of : OB Triage Monitor Mode: External Monitor Mode: External US
[2016-06-14] MEDS ORDERED: LACTATED RINGER'S 1,000 ML IV PRN (15:55)
[2016-06-14] MEDS ORDERED: AMPICILLIN 2 GM/NS (PMX) 100 ML IV ONE (16:00)
[2016-06-14] MEDS ORDERED: LIDOCAINE 1% (MPF) 30 ML INJ INJ PRN (16:00)
[2016-06-14] MEDS ORDERED: MISOPROSTOL 200 MCG TAB PR PRN (16:00)
[2016-06-14] MEDS ORDERED: CARBOPROST 250 MCG INJ IM PRN (16:00)
[2016-06-14] MEDS ORDERED: OXYTOCIN 30 UNITS/LR 500 ML IV SCH ×3 (16:00)
[2016-06-14] MEDS ORDERED: METHYLERGONOVINE 0.2 MG INJ IM PRN (16:00)
[2016-06-14] MEDS ORDERED: OXYTOCIN 30 UNITS/LR 500 ML IV PRN (16:00)
[2016-06-14] MEDS ORDERED: IBUPROFEN 600 MG TAB PO ONE (18:00)
[2016-06-14] MEDS ORDERED: AMPICILLIN 1 GM/NS (PMX) 50 ML IV SCH (20:00)
--- NOTE | 2016-06-15 00:53 | PREOPHP ---
DATE OF ADMISSION: 06/14/2016 HISTORY OF PRESENT ILLNESS: Ms. Champagne is a 30-year-old 1, para 0, EDC 06/17/2013 intrauterine at 39 weeks and 5 days' gestational age, who was sent from clinic for evalua tion secondary to elevated blood pressures. Patient denies any headache, nausea, vomiting, shortnes s of breath, or visual changes. She had a favorable cervix, which was decided to start induction, a fter the risks, benefits and alternatives was explained to the patient. Her care took plac e at [facility]. MEDICAL HISTORY: None. MEDICATIONS: vitamins. PAST SURGICAL HISTORY: None. OBSTETRIC HISTORY: Primigravid. GYNECOLOGIC HISTORY: 14, regular 3 to 4 days, denies any sexually transmitted diseases, sexually ac tive with 1 partner. SOCIAL HISTORY: Denies any smoking, drugs, or alcohol. FAMILY HISTORY: None. PHYSICAL EXAMINATION: HEENT: Within normal. LUNGS: CTA bilaterally. CARDIOVASCULAR: S1, S2, regular rhythm. ABDOMEN: Gravid, nontender. EXTREMITIES: Negative edema. No calf tenderness. PELVIC: Vaginal exam 380 -3. ASSESSMENT: A 30-year-old 1, para 0, intrauterine at 39 weeks and 5 days gestatio nal age with gestational hypertension. PLAN: To continue Pitocin for labor induction. Risks, benefits, and alternatives explained. All q uestions were answered. Dictated By: ANG BARBOUR/AAMIR Conf#: [id number] DID#: [id number]
[2016-06-15] MEDS: LACTATED RINGER'S 1,000 ML IV SCH ×3 (01:46→18:06)
[2016-06-15] MEDS: BUTORPHANOL 2 MG INJ IV PRN ×2 (08:03→10:09)
[2016-06-15] MEDS ORDERED: FENTAnyl 2MCG/ML-ROPIV 0.2% 100 ML ONE (11:26)
[2016-06-15] MEDS ORDERED: ONDANSETRON 4 MG INJ IV PRN (12:30)
[2016-06-15] MEDS ORDERED: DIPHENHYDRAMINE 50 MG INJ IV PRN (12:30)
[2016-06-15] MEDS ORDERED: NALOXONE (0.4 MG/ML) INJ IV PRN (12:30)
[2016-06-15] MEDS: FENTAnyl 2MCG/ML-ROPIV 0.2% 100 ML BAG EPI SCH ×2 (13:12→16:45)
--- NOTE | 2016-06-15 19:40 | LDN ---
Date/Time of Note Date/Time of Note DATE: 06/15/16 TIME: 19:38 Delivery Summary Placenta Delivered: Spontaneously Perineum intact?: No Perineal laceration repair: 2nd degree perineal laceration repair with 2-0 and 3-0 chromic Anesthesia type: Epidural Estimated blood loss: 300 Sponge & Needle done & correct: Yes All needle counts correct: Yes Any foreign bodies felt in the: No Problems: Delivery Information Sex Sex: male Apgars 1 Minute: 9 5 Minute: 9 Suctioning Nose & mouth suctioned at eyal: No Delee suction performed: No Umbilical Cord Umbilical cord with: 3 Vessels Cord presentations: no nuchal cord Cord Blood was obtained: Yes ANG STOVER MD Jun 15, 2016 19:40
[2016-06-15] MEDS ORDERED: IBUPROFEN 600 MG TAB PO PRN (21:30)
[2016-06-15 21:55] VITALS: BP 121/71; PULSE 106; RESP 18
[2016-06-15] MEDS ORDERED: METHYLERGONOVINE 0.2 MG INJ IM PRN (23:00)
[2016-06-15] MEDS ORDERED: ACETAMINOPHEN/CODEINE #3 TAB PO PRN ×2 (23:00)
[2016-06-15] MEDS ORDERED: SENNA/DOCUSATE NA (8.6MG/50MG) TAB PO PRN (23:00)
[2016-06-15] MEDS ORDERED: CARBOPROST 250 MCG INJ IM PRN (23:00)
[2016-06-15] MEDS ORDERED: DIBUCAINE 1% 30 GM OINT PR PRN (23:00)
[2016-06-15] MEDS ORDERED: MISOPROSTOL 200 MCG TAB PR PRN (23:00)
[2016-06-15] MEDS ORDERED: WITCH HAZEL/GLYCERIN PAD PR PRN (23:00)
[2016-06-15] MEDS ORDERED: BENZOCAINE 20% 56 ML SPRAY TOP PRN (23:00)
[2016-06-15] MEDS ORDERED: LANOLIN 7 GM TUBE TOP PRN (23:00)
[2016-06-15] MEDS ORDERED: OXYTOCIN 30 UNITS/LR 500 ML IV PRN (23:00)
[2016-06-16] VITALS: BP 110/67; PULSE 91; RESP 18
[2016-06-16] MEDS: LACTATED RINGER'S 1,000 ML IV* SCH ×2 (00:49→06:49)
[2016-06-16 04:00] VITALS: BP 108/67; PULSE 91; RESP 18
[2016-06-16] MEDS: IBUPROFEN 600 MG TAB PO SCH ×5 (06:01→23:37)
[2016-06-16 07:42] LABS: ADD SCAN DIFF NO
[2016-06-16 07:55] LABS: BASOPHILS % 0.1 % (0.0-2.0); EOSINOPHILS % 0.2 % (0.0-7.0); HEMATOCRIT 27.7 % (37.0-47.0); LYMPHOCYTES # 1.5 10^3/ul (0.8-2.9); LYMPHOCYTES % 9.7 % (15.0-51.0); MEAN CORPUSCULAR HGB CONC 32.5 g/dl (32.0-37.0); MEAN PLATELET VOLUME 9.9 fl (7.4-10.4); MONOCYTE # 1.1 10^3/ul (0.3-0.9); MONOCYTES % 6.9 % (0.0-11.0); NEUTROPHIL # 12.5 10^3/ul (1.6-7.5); NEUTROPHILS % 82.6 % (39.0-77.0); PLATELET COUNT 310 10^3/UL (140-415); RED BLOOD COUNT 3.22 10^6/ul (4.20-5.40); RED CELL DISTRIBUTION WIDTH 17.9 % (11.5-14.5); WHITE BLOOD COUNT 15.2 10^3/ul (4.8-10.8)
[2016-06-16 08:30] VITALS: BP 104/59; PULSE 80; RESP 20
[2016-06-16] MEDS: MAGNESIUM HYDROXIDE 30ML CUP PO SCH ×2 (09:18→21:05)
[2016-06-16] MEDS: SENNA/DOCUSATE NA (8.6MG/50MG) TAB PO SCH ×2 (09:18→21:06)
[2016-06-16 12:40] VITALS: BP 104/59; PULSE 80; RESP 20
[2016-06-16 16:40] VITALS: BP 114/61; PULSE 89; RESP 20
--- NOTE | 2016-06-16 17:07 | QN ---
Documentation Comment PPD #1 Doing well. No c/o. T= 98.1 BP 104/59. Fundus firm. Lochia minimal. Ext 1+ edema. WBC 15.2 Hgb 9.0 P: continue care and d/c tomorrow. DIRK MARTINEZ MD Jun 16, 2016 17:07
[2016-06-16 19:30] VITALS: BP 120/75; PULSE 76; RESP 20
[2016-06-17 03:35] VITALS: BP 113/62; PULSE 70; RESP 20
[2016-06-17] MEDS: IBUPROFEN 600 MG TAB PO SCH ×2 (05:27→12:00)
[2016-06-17 08:15] VITALS: BP 106/66; PULSE 76
[2016-06-17] MEDS: SENNA/DOCUSATE NA (8.6MG/50MG) TAB PO SCH (08:50)
[2016-06-17] MEDS: MAGNESIUM HYDROXIDE 30ML CUP PO SCH (08:50)
--- NOTE | 2016-06-17 09:41 | PD.PPDC ---
DISPUTE COORDINATOR Discharge Instruction Condition Patient Condition: Good Diet Diet: Resume Regular Diet Activity/Restrictions Activity: Normal Activity May Shower Restrictions: No Sexual Activity Nothing in the Vagina No Haring No Tampons, douche Follow-up Follow-up with Physician: 6 Return to clinic for PARTS CLERK Instructions: Fever greater than 101 Chills Worsening abdominal pain Excessive Vaginal Bleeding OB Instructions: Breast Tenderness Depression DIRK MARTINEZ MD Jun 17, 2016 09:41
--- NOTE | 2016-06-17 09:43 | DS ---
Date/Time of Note Date/Time of Note DATE: 06/17/16 TIME: 09:41 Obstetrical Discharge Record Final Diagnosis Final Diagnosis: Term delivered Vaginal Delivery Obstetrical Delivery: Spontaneous, Laceration, Repaired Complications Augmentation: Yes Induction: No Condition on Discharge Physical Assessment Last Vitals: T=98.0 BP 113/62 Voiding: Yes Bowel Movement: Yes Breast: Filling Fundus: Firm Calf Tenderness: No Patient Condition: Good DIRK MARTINEZ MD Jun 17, 2016 09:43
== END 2016-06-17 15:04 | disposition home or self-care (01) | DRG 775 ==
LOC: L-D 12:39 → OBT 12:39 → L-D 15:45 → PP1 06-15 22:02
PROVIDERS: ADMIT Obstetrics & Gynecology; ATTEND Obstetrics & Gynecology
PROC: 10E0XZZ Delivery of Products of Conception, External Approach (ICD-10-PCS; principal; 2016-06-15)
PROC: 0KQM0ZZ Repair Perineum Muscle, Open Approach (ICD-10-PCS; 2016-06-15)
DX: O70.1 Second degree perineal laceration during delivery (principal); Z37.0 Single live birth; O13.4 Gestational [pregnancy-induced] hypertension without significant proteinuria, complicating childbirth; Z3A.39 39 weeks gestation of pregnancy
CPT/HCPCS: 36415; 62319; 76815; 76818; 80053; 81003; 84560; 85025; 85610; 85730; 86592; 86900; 86901; 87340; G0463; J0290; J2590; J3010; J7120

== ENCOUNTER 2016-09-17 16:57 | Emergency (ER) | payer MEDICAID ==
[~2016-09-17] VITALS: Ht 160 cm; Wt 94.0 kg
[2016-09-17 17:03] VITALS: Ht 160 cm; Wt 94.0 kg
--- NOTE | 2016-09-17 18:12 | ERA ---
ER Documentation Chief Complaint Date/Time DATE: 09/17/16 TIME: 18:12 Chief Complaint Right breast pain HPI The patient is 31-year-old female, presenting to the ER because of muscular back to her right breast 3 days ago She was seen at urgent care today who prescribed her Bactrim DS and Keflex and sent her to the ER for an ultrasound. She denies fever, chills, neck pain, chest pain, dyspnea, abdominal pain, vomiting, dysuria, diarrhea. She does not smoke nor drink Past medical/social history: None ROS All systems reviewed and are negative except as per history of present illness. Medications Home Meds Reported Medications Ferrous Sulfate (Iron) 325 Mg Capsule.er, 325 MG PO TID, CAP 05/31/16 Folic Acid* (Folic Acid*) 0.8 Mg Tablet, 0.8 MG PO DAILY, TAB 05/17/16 Ferrous Sulfate (Iron) 325 Mg Capsule.er, 325 MG PO DAILY, CAP 05/17/16 Multivit/Min/Fol Ac/Iron/Pren* ( S*) 1 Tab Tab, 1 TAB PO DAILY, TAB 05/17/16 Allergies Allergies: Coded Allergies: No Known Drug Allergies (Verified Allergy, Unknown, 09/17/16) Physical Exam Vitals Vital Signs Date Time Temp Pulse Resp B/P Pulse Ox O2 Delivery O2 Flow Rate FiO2 09/17/16 17:03 98.3 91 16 154/84 97 Physical Exam Const: No acute distress. Head: Atraumatic. Eyes: Normal Conjunctiva. ENT: Normal External Ears, Nose and Mouth. Neck: Full range of motion. No meningismus. Resp: Clear to auscultation bilaterally. Cardio: Regular rate and rhythm. Breasts: Right breast with small area of erythema with minimal fluctuance, no nipple discharge Abd: Soft, non distended, normal bowel sounds, non tender. Skin: No petechiae or rashes. Back: No midline or flank tenderness. Ext: No cyanosis, or edema. Neur: Awake and alert. No focal deficit Psych: Normal Mood and Affect. Procedures/MDM MEDICAL MAKING DECISION: The patient is a 57-year-old female, presenting with acute left breast cellulitis, early small abscess. Ultrasound is not indicated at this time. The differential diagnoses considered include but are not limited to cellulitis , abscess, malignancy Departure Diagnosis: Primary Impression: Cellulitis of right breast Condition: Good Comments He was advised to continue Bactrim DS, Keflex and return in 2-3 days for reevaluation, sooner if any concern The patient's blood pressure was elevated (>120/80) but appears stable without evidence of hypertension emergency or urgency. The patient was counseled about the risks of hypertension and urged to pursue outpatient monitoring and therapy within a week with their primary care physician. ANG LAL MD Sep 17, 2016 18:12
== END 2016-09-17 18:50 | disposition home or self-care (01) ==
LOC: FTE 16:57
DX: N61.0 Mastitis without abscess (principal)
CPT/HCPCS: 99282